=== PATIENT | male | born 1980 | race Caucasian/White ===

== ENCOUNTER 2020-08-22 20:38 | Emergency (ER) | payer MEDICAID ==
--- NOTE | 2020-08-22 21:13 | EDM.PDOC ---
ED HPI GENERAL MEDICAL PROBLEM - General Chief Complaint: Skin Complaint Stated Complaint: SKIN COMPLAINT ON LEGS Time Seen by Provider: 08/22/20 20:43 Source of Information: Reports: Patient History Limitations: Reports: No Limitations - History of Present Illness INITIAL COMMENTS - FREE TEXT/NARRATIVE: Patient is a 40 year old male presenting to the ER with c/o redness and edema to his bilateral lower extremities. 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 He states that he does not see anyone for his psoriasis, but that he has used topical clobetasol in the past but that he is out of that medication. He states his psoriasis, redness, and swelling of his lower extremities has worsened over the last two days, but that he doesn't think the swelling in his legs is from the psoriasis. He thinks it is from his kidneys. Pt appears intoxicated. When asked about drug or alcohol use he states that he drinks alcohol daily and when asked how much he stated "all that I can get". He denies any fever, chills, nausea, or vomiting. Denies a hx of kidney problems. Bilateral Leg Pain Score (Numeric/FACES): 8 - Related Data Allergies Allergy/AdvReac Type Severity Reaction Status Date / Time No Known Allergies Allergy Verified 08/22/20 20:49 Home Meds: Home Meds Clobetasol Propionate [Impoyz] 100 gm TP BID 14 Days #100 cream..g. 08/22/20 [Rx] Past Medical History Dermatologic History: Reports: Psoriasis Social & Family History - Tobacco Use Smoking Status *Q: Current Every Day Smoker Years of Tobacco use: 15 Packs/Tins Daily: 1 ED ROS GENERAL - Review of Systems Review Of Systems: See Below Constitutional: Reports: No Symptoms. Denies: Fever, Chills, Weakness HEENT: Reports: No Symptoms Respiratory: Reports: No Symptoms Cardiovascular: Reports: No Symptoms Endocrine: Reports: No Symptoms GI/Abdominal: Reports: No Symptoms : Reports: No Symptoms Musculoskeletal: Reports: No Symptoms Skin: Reports: Other (Diffuse plaque psoriasis throughout the lower extremities to the level of the waist. Redness and edema to lower extremities bilaterally.) Neurological: Reports: No Symptoms Psychiatric: Reports: No Symptoms Hematologic/Lymphatic: Reports: No Symptoms Immunologic: Reports: No Symptoms ED EXAM, SKIN/RASH Exam: See Below Exam Limited By: Intoxication General Appearance: Alert, WD/WN, No Apparent Distress Respiratory/Chest: No Respiratory Distress, Lungs Clear, Normal Breath Sounds, No Accessory Muscle Use, Chest Non-Tender Cardiovascular: Normal Peripheral Pulses, Regular Rate, Rhythm, No Edema, No Gallop, No JVD, No Murmur, No Rub Extremities: Other (Diffuse plaque psoriasis covering bilateral lower extremities to the level of the waist. Redness and edema underlying the plaques to the bilateral lower extremities.) Neurological: Alert, Oriented, CN II-XII Intact, Normal Cognition, Normal Gait, Normal Reflexes, No Motor/Sensory Deficits Psychiatric: Normal Affect, Normal Mood Skin: Other (Scattered areas of plaque psoriasis throughout the body, worse in the lower extremities. ) Course - Vital Signs Last Recorded V/S: Last Vital Signs Temp 98.1 F 08/22/20 20:49 Pulse 114 H 08/22/20 20:49 Resp 16 08/22/20 20:49 BP 159/97 H 08/22/20 20:49 Pulse Ox 97 08/22/20 20:49 - Orders/Labs/Meds Labs: Laboratory Tests 08/22/20 08/22/20 Range/Units 21:28 21:28 WBC 5.36 (4.23-9.07) K/mm3 RBC 4.47 L (4.63-6.08) M/mm3 Hgb 14.9 (13.7-17.5) gm/dl Hct 44.4 (40.1-51.0) % MCV 99.3 H (79.0-92.2) fl MCH 33.3 H (25.7-32.2) pg MCHC 33.6 (32.2-35.5) g/dl RDW Std Deviation 49.0 H (35.1-43.9) fL Plt Count 143 L (163-337) K/mm3 MPV 8.8 L (9.4-12.3) fl Neut % (Auto) 44.1 (34.0-67.9) % Lymph % (Auto) 36.8 (21.8-53.1) % [place] % (Auto) 14.4 H (5.3-12.2) % Eos % (Auto) 4.1 (0.8-7.0) Baso % (Auto) 0.4 (0.1-1.2) % Neut # (Auto) 2.37 (1.78-5.38) K/mm3 Lymph # (Auto) 1.97 (1.32-3.57) K/mm3 [place] # (Auto) 0.77 (0.30-0.82) K/mm3 Eos # (Auto) 0.22 (0.04-0.54) K/mm3 Baso # (Auto) 0.02 (0.01-0.08) K/mm3 Sodium 144 (136-145) mEq/L Potassium 3.6 (3.5-5.1) mEq/L Chloride 107 (98-107) mEq/L Carbon Dioxide 25 (21-32) mEq/L Anion Gap 15.6 H (5-15) BUN 5 L (7-18) mg/dL Creatinine 1.0 (0.7-1.3) mg/dL Est Cr Clr Drug Dosing 109.86 mL/min Estimated GFR (MDRD) > 60 (>60) mL/min BUN/Creatinine Ratio 5.0 L (14-18) Glucose 139 H (74-106) mg/dL Calcium 7.9 L (8.5-10.1) mg/dL Total Bilirubin 0.7 (0.2-1.0) mg/dL AST 113 H (15-37) U/L ALT 52 (16-63) U/L Alkaline Phosphatase 94 (46-116) U/L Total Protein 8.2 (6.4-8.2) g/dl Albumin 3.1 L (3.4-5.0) g/dl Globulin 5.1 gm/dL Albumin/Globulin Ratio 0.6 L (1-2) - Re-Assessments/Exams Free Text/Narrative Re-Assessment/Exam: Patient is a 40-year-old male presenting to the emergency department with complaints of redness and swelling to his bilateral lower extremities. On exam, he has diffuse plaque psoriasis covering his lower extremities quite thickly. Patient appears to be intoxicated but can provide that he has taken colestipol in the past. States he is out of this medication. Patient is insistent that the redness and swelling is from his kidneys not from his psoriasis, however, the redness and swelling would be consistent with inflammation underlying the thick plaques of psoriasis on his legs. We will do a CBC, CMP to assess patient's kidney status. 08/22/2020 22:10 Hematology was grossly unremarkable. BUN was low at 5 and creatinine normal at 1.0 within estimated GFR greater than 60. Discussed with patient that his kidneys are functioning well. The likely cause of his redness and swelling is the extreme amount of plaque psoriasis present on his lower extremities. I will send a prescription for clobetasol and recommend that he follow-up in the inic to establish care with a primary care provider. He is in agreement with this. Discharge instructions as documented. Departure - Departure Time of Disposition: 22:11 Disposition: Home, Self-Care 01 Condition: Good Clinical Impression: Psoriasis - Discharge Information *PRESCRIPTION DRUG MONITORING PROGRAM REVIEWED*: No *COPY OF PRESCRIPTION DRUG MONITORING REPORT IN PATIENT DEMI: No Prescriptions: Clobetasol Propionate [Impoyz] 100 gm TP BID 14 Days #100 cream..g. Instructions: Psoriasis Referrals: Catracho Abdul NP [Nurse Practitioner] - Forms: ED Department Discharge Additional Instructions: You were seen in the emergency department this evening for diffuse plaque psoriasis with underlying redness and some swelling of your lower extremities. Blood work was completed and found to be normal. Your kidney function is not impaired in any way. As we discussed, the swelling and redness underlying the plaques is due to the inflammatory process of plaque psoriasis. A prescription for clobetasol has been sent to [facility]. Apply this medication to the affected area twice daily for 2 weeks. Follow-up in the clinic for ongoing management and to establish care with a primary care provider. A referral has been sent to Michael Abdul NP. The number to schedule with her as listed below. Return to ER as needed. Sepsis Event Note (ED) - Evaluation Sepsis Screening Result: No Definite Risk
== END 2020-08-22 22:49 | disposition home or self-care (01) ==
LOC: JD.ED 20:38
DX: L40.9 Psoriasis, unspecified (principal); F17.210 Nicotine dependence, cigarettes, uncomplicated
CPT/HCPCS: 36415; 80053; 85025; 99283